=== PATIENT | female | born 1965 | race Caucasian/White ===

== ENCOUNTER 2017-05-08 15:43 | Observation (INO) | payer MEDICARE, MEDICAID ==
[~2017-05-08] VITALS: Ht 170.2 cm; Wt 107.6 kg
[~2017-05-08 15:43] MED LIST: AMLO10TA2 PO; BUSP10TA PO; LISI40TA PO; RANI150T8 PO; SERT100T PO; TRAZ300T2 PO
[2017-05-08 16:30] LABS: BASOPHILS # (AUTO) 0.02 x10^3/uL (0-0.1); BASOPHILS % (AUTO) 0 % (0-1); EOSINOPHILS % (AUTO) 2 % (1-7); LYMPHOCYTES # (AUTO) 1.39 x10^3/uL (1-3.4); LYMPHOCYTES % (AUTO) 23 % (22-44); MD NO; MEAN CORPUSCULAR HGB CONC 33.5 g/dL (32.4-35.8); MEAN CORPUSCULAR VOLUME 89.6 fL (80-100); MEAN PLATELET VOLUME 8.6 fL (7.4-10.4); MONOCYTES # (AUTO) 0.35 x10^3/uL (0.2-0.8); MONOCYTES % (AUTO) 6 % (2-9); NEUTROPHILS # (AUTO) 4.08 x10^3/uL (1.8-6.8); NEUTROPHILS % (AUTO) 69 % (42-75); PLATELET COUNT 241 x10^3/uL (130-400); RED BLOOD COUNT 5.28 x10^6/uL (3.82-5.3); RED CELL DISTRIBUTION WIDTH 13.4 % (9.6-15.2)
[2017-05-08] MEDS ORDERED: NITROGLYCERIN SINGLE TAB 0.4 MG SL PRN (16:30)
[2017-05-08] MEDS ORDERED: SODIUM CHLORIDE 0.9% 1,000ML IVBOLUS ONE (16:30)
[2017-05-08] MEDS ORDERED: SODIUM CHLORIDE FLUSH 10ML SYR IVF ONE (16:30)
[2017-05-08] MEDS ORDERED: MECLIZINE CHEWABLE 25 MG TAB PO ONE (16:30)
[2017-05-08] MEDS ORDERED: ASPIRIN 81 MG TABLET CHEW PO ONE (16:30)
[2017-05-08] MEDS ORDERED: NITROGLYCERIN SINGLE TAB 0.4 MG SL ONE (16:36)
[2017-05-08] MEDS ORDERED: MECLIZINE CHEWABLE 25 MG TAB ONE (16:36)
[2017-05-08] MEDS ORDERED: ASPIRIN 81 MG TABLET CHEW ONE (16:36)
[2017-05-08 16:38] LABS: ALANINE AMINOTRANSFERASE 28 U/L (12-78); ALBUMIN 3.6 g/dL (3.4-5.0); ANION GAP 6 mmol/L (5-15); CALCIUM 8.6 mg/dL (8.5-10.1); CHLORIDE 105 mmol/L (98-107); CREATININE 0.85 mg/dL (0.55-1.02)
[2017-05-08 16:41] LABS: D-DIMER 0.25 ug/mlFEU (0.00-0.52); INTERNATIONAL NORMALIZED RATIO 0.93 (0.93-1.1); PROTHROMBIN TIME 9.7 Seconds (9.6-11.5)
[2017-05-08 16:42] LABS: ALKALINE PHOSPHATASE 123 U/L (45-117); BILIRUBIN,TOTAL 0.3 mg/dL (0.2-1.0); TOTAL PROTEIN 7.4 g/dL (6.4-8.2); TROPONIN I < 0.015 ng/mL (0.000-0.045)
[2017-05-08] MEDS ORDERED: VORT10TA PO (18:40)
[2017-05-08] MEDS ORDERED: LAMO100T PO (18:40)
[2017-05-08] MEDS ORDERED: HYDR25TA6 PO (18:40)
[2017-05-08] MEDS ORDERED: IBUP100T6 PO (18:40)
[2017-05-08] MEDS ORDERED: OMEP-110 PO (18:40)
[2017-05-08] MEDS ORDERED: DIAZ10TA4 PO (18:40)
[2017-05-08] MEDS ORDERED: ACETAMINOPHEN 325 MG TABLET PO PRN (19:30)
[2017-05-08] MEDS ORDERED: hydrALAzine 20 MG/ML, 1ML IVPush PRN (19:30)
[2017-05-08] MEDS ORDERED: ONDANSETRON 2MG/ML, 2ML IVPush PRN (19:30)
[2017-05-08 19:45] VITALS: BP 122/88
[2017-05-08] MEDS ORDERED: OMEPRAZOLE 20 MG CAPSULE.DR PO SCH (21:00)
[2017-05-08] MEDS: DIAZEPAM 5 MG TABLET PO SCH (22:44)
[2017-05-08] MEDS: TRAZODONE 100MG TABLET PO SCH (22:44)
[2017-05-08] MEDS: SODIUM CHLORIDE FLUSH 10ML SYR IVF SCH (22:44)
[2017-05-08 23:30] LABS: TROPONIN I < 0.015 ng/mL (0.000-0.045)
[2017-05-08] MEDS: LAMOTRIGINE 100 MG TABLET PO SCH (23:46)
[2017-05-09 03:24] VITALS: BP 106/67
[2017-05-09 05:28] LABS: CHOLESTEROL, TOTAL 228 mg/dL (140-239); HDL CHOL % 20 % (28-40); HDL CHOLESTEROL (DIRECT) 46 mg/dL (40-60); LDL CHOLESTEROL,CALCULATED 147 mg/dL (54-169); LDL/HDL RATIO 3.2 (0.5-3.0); TRIGLYCERIDES 176 mg/dL (50-200); TROPONIN I < 0.015 ng/mL (0.000-0.045); VLDL CHOLESTEROL 35 mg/dL (0-25)
[2017-05-09 07:01] VITALS: BP 108/73
[2017-05-09] MEDS ORDERED: REGADENOSON 0.4 MG/5 ML SYRINGE ONE (08:09)
[2017-05-09] MEDS ORDERED: HYDROCHLOROTHIAZIDE 25 MG TABLET PO SCH (09:00)
[2017-05-09] MEDS: DIAZEPAM 5 MG TABLET PO SCH (12:42)
[2017-05-09] MEDS: TRAZODONE 100MG TABLET PO SCH (12:43)
[2017-05-09] MEDS: LAMOTRIGINE 100 MG TABLET PO SCH (12:43)
[2017-05-09] MEDS: SODIUM CHLORIDE FLUSH 10ML SYR IVF SCH (12:43)
[2017-05-09 13:18] VITALS: BP 118/81
== END 2017-05-09 17:46 | disposition home or self-care (01) ==
LOC: ED 18:27 → EDIP 18:30 → INTOOBSV 18:30 → 5SO 19:56
PROVIDERS: ADMIT Hospitalist; ATTEND Hospitalist
DX: R07.89 Other chest pain (principal); I10 Essential (primary) hypertension; F32.9 Major depressive disorder, single episode, unspecified; K21.9 Gastro-esophageal reflux disease without esophagitis; K51.90 Ulcerative colitis, unspecified, without complications; E78.5 Hyperlipidemia, unspecified; Z80.49 Family history of malignant neoplasm of other genital organs; Z82.3 Family history of stroke; Z82.49 Family history of ischemic heart disease and other diseases of the circulatory system
CPT/HCPCS: 36415; 71045; 78452; 80053; 80061; 83880; 84484; 85025; 85379; 85610; 85730; 93005; 93017; 93971; 99285; A9502; C9898; G0378; J2785; J7030